=== PATIENT | female | born 1985 | race Caucasian/White ===

== ENCOUNTER → 2021-09-11 09:27 | Outpatient (BNVA) | payer OTHER, SELFPAY | PROVIDERS: Referring Provider Obstetrics & Gynecology; Visit Provider Obstetrics & Gynecology | DX: O09.893 Supervision of other high risk pregnancies, third trimester (principal); O34.211 Maternal care for low transverse scar from previous cesarean delivery; N85.8 Other specified noninflammatory disorders of uterus; Z3A.35 35 weeks gestation of pregnancy | CPT/HCPCS: 81000; 87086 ==

== ENCOUNTER 2021-09-26 17:45 | Inpatient (IN) | payer OTHER, SELFPAY ==
[2021-09-26] VITALS (20 sets, daily range): BP systolic 103–144; BP diastolic 60–87; PULSE 64–114; TEMP 36.4–36.9; O2SAT 94–98; BMI 38.9
--- NOTE | 2021-09-26 17:30 | ANES.PREANE2 ---
Pre-Anesthetic Assessment Height/Weight: Height 1.57 m Pulse BP 105 H 133/74 09/26/21 17:21 09/26/21 17:21 Preop Diagnosis: Planning of labor analgesia Labor w/ hx of prior c section Familial anesthetic complications: None Was Beta Jazlyn taken within 24 hours: N/A Was Clonidine taken within 24 hours: N/A Last intake: Full stomach Social No alcohol and No tobacco Exam alert, oriented x 3, clear to auscultation bilaterally and regular rate & rhythm Airway Submandibular: within normal limits Cervical ROM: within normal limits Mallampati: Class II Dentition: full History/ROS No significant history except as noted and No significant complaints Pulmonary None reported CV/HEM None reported None reported Hepatic None reported GI None reported Metabolic None reported Musc/skel None reported Neuropsych None reported Anesthetic Plan ASA status: 2 Anesthesia: Anesthesia Evaluation, Eval. for regional block, General and Regional (specify below) (Spinal) Other: We discussed risk and benefits of spinal anesthesia including infection, paralysis/catastrophic nerve injury, back bruising/pain, PDPH, conversion to general in case of spinal failure, intraoperative and PONV, life threatening allergic reaction, post operative ICU admission requiring prolonged intubation, stroke, heart attack. Risk of > 500 ml blood loss (7ml/kg in children): No Medications/Allergies Home Medications Medication Instructions Recorded Confirmed Last Taken Type docosahexaenoic acid 200 mg mg PO 09/11/21 09/18/21 Unknown History capsule ( DHA) Allergies Allergy/AdvReac Type Severity Reaction Status Date / Time No Known Allergies Allergy Verified 09/18/21 10:51 [facility] Anesthesia Surgical History History of bunionectomy History of Family History Denies family history of Diabetes CAD (coronary artery disease) Clotting disorder Hyperlipidemia Chronic kidney disease (CKD) Bleeding disorder Cancer Hypertension Thyroid disease Stroke Data Anesthesia Cardiac Studies: No Data to Display
--- NOTE | 2021-09-26 17:45 | PM.OPHPUD ---
Labor & Delivery H&P Update Date of Procedure: September 26, 2021 Date H&P Performed: 09/18/21 H&P update information: I have reviewed H&P completed within last 30 days, I have examined patient prior to procedure and Changes to prior documentation as noted here Changes to previous documentation: The patient has had SROM. She is now dilated to 5 cm and is requesting a repeat with tubal ligation. Admission Diagnosis: at 39 weeks, 1 day Preop diagnosis: Planning of labor analgesia Planned procedure: repeat with tubal ligation Related Problem List Diagnoses (1) Supervision of other high risk pregnancies, third trimester: (2) Previous delivery affecting : (3) Sterilization:
[2021-09-26 17:46] LABS: Basophils % 0.4 %; Eosinophils % 0.5 %; Hematocrit 36.9 % (37.0-47.0); Hemoglobin 12.2 g/dL (11.5-15.3); Lymphocytes # 0.7 10^3/uL (0.8-4.8); Lymphocytes % 8.8 %; Mean Corpuscular HGB Conc 33.1 g/dL (30.0-36.0); Mean Corpuscular Hemoglobin 28.8 pg (28.0-34.0); Mean Corpuscular Volume 87.2 fl (81-99); Mean Platelet Volume 10.6 fL (7.4-10.4); Monocytes # 0.8 10^3/uL (0.2-0.9); Monocytes % 9.6 %; Neutrophils # 6.67 10^3/uL (1.8-7.7); Neutrophils % 80.3 %; Nucleated Red Blood Cells % 0 %; Platelet Count 162 10^3/cmm (130-400); Red Blood Count 4.23 10^6/uL (4.1-5.3); Red Cell Distribution Width 13.7 % (12.1-15.1); White Blood Count 8.3 10^3/uL (4.0-10.0)
[2021-09-26] MEDS: citric acid-sodium citrate 30 mL UDC PO (18:10)
[2021-09-26] MEDS: metoclopramide 5 mg/mL SDV 2 mL 10 MG IVP (18:10)
[2021-09-26] MEDS: famotidine 20 mg/2 mL INJ IVP (18:11)
--- NOTE | 2021-09-26 19:57 | PM.OP ---
Operative Report Date of procedure: September 26, 2021 Pre-op diagnosis: Preop Diagnosis: previous . Desires repeat with tubal ligation. Post-op diagnosis: same Post-op findings: term male in the cephalic presentation. Procedure done: repeat with bilateral salpingectomy Specimens removed/disposition: bilateral fallopian tubes to pathology Surgeon: Shruthi Nix Anesthesia: Other (spinal) Estimated blood loss (mL): 300 IV fluids (mL): 2,000 Urine output (mL): 50 Complications: none Condition: stable Disposition: floor Brief History: The patient presented with SROM at term. She had 5 cm cervical dilation. She had previously wanted a TOLAC, but decided tonight that she would rather have a repeat with tubal ligation. Procedure: The patient was taken to the operating room where spinal anesthesia was administered and found to be adequate. She was prepped and draped in the normal sterile fashion in the dorsal supine position with a leftward tilt. A Pfannenstiel skin incision was made and carried down to the underlying layer of fascia. The fascia was nicked in the midline and extended laterally with the Fletcher scissors. The fascia was then tented up and the rectus muscles dissected off sharply. The rectus muscles were and the peritoneum entered bluntly with the digit. The peritoneal incision was extended superiorly and inferiorly with good visualization of the bladder. The Nixon O retractor was placed. It was clear of any bowel or omentum. The bladder flap was created sharply with the Metzenbaum scissors. A low transverse uterine incision was made and carried down to the bag of water. The bag of water was ruptured and the uterine incision extended cephalocaudad. The scalp was grasped and brought through the incision. The nose and mouth were bulb suctioned. The shoulders and body delivered atraumatically. The baby was allowed to rest, while being dried, for 1 minute and then the cord was clamped and cut. The baby was handed to the waiting real estate loan officer. The placenta was delivered by expression. The uterus was exteriorized and cleared of all clots and debris. The uterine incision was closed with 0 Vicryl in a running fashion. A second imbricating layer of 3-0 Monocryl was used to close the uterus. The bladder flap was closed with 3-0 Monocryl. There was excellent hemostasis. Attention was then turned to the tubal ligation portion of the procedure. The fallopian tube was elevated with the armando clamp. The cautery device was used to divide and cauterize the mesosalpinx between the tube and ovary, until the entire tube was removed. This was performed the same way on both sides. The Nixon O retractor was removed. The uterus was returned to the abdomen. The peritoneum was closed with 3-0 Monocryl, incorporating the rectus muscle. The fascia was closed with 0 Vicryl in 2 separate sutures overlapping in the midline. The skin was closed with absorbable ken. Apgars on baby 8 at 1 minute and 9 at 5 minutes. weight 8 pounds. Mother and baby were stable post delivery.
[2021-09-26] MEDS: guaiFENesin-dextromethorphan UDC 10 mL PO (21:43)
[2021-09-26] MEDS: saline nasal spray 44mL Btl 1 SPRAY NASAL (22:37)
[2021-09-27] VITALS (13 sets, daily range): BP systolic 110–135; BP diastolic 65–79; PULSE 78–112; RESP 16–17; TEMP 36.4–36.9; O2SAT 96–97
[2021-09-27] MEDS: saline nasal spray 44mL Btl 1 SPRAY NASAL ×2 (01:34→21:19)
[2021-09-27] MEDS: ketorolac 30 mg/mL INJ IVP (03:05)
[2021-09-27] MEDS: guaiFENesin-dextromethorphan UDC 10 mL PO ×4 (03:29→21:38)
[2021-09-27] MEDS: lanolin oint 7 gm 1 APPLIC TOPICAL (03:30)
[2021-09-27] MEDS: prenatal vitamin Capsule 1 CAP PO (09:11)
[2021-09-27] MEDS: docusate sodium 100 mg Capsule PO ×2 (09:11→17:47)
[2021-09-27] MEDS: oxyCODONE-APAP 5-325 mg Tablet PO ×3 (09:13→20:16)
--- NOTE | 2021-09-27 09:52 | ANE.PACU2 ---
Inpatient post-anesthesia follow up: Airway intact: Yes Vital signs: Temperature 97.9 F Pulse Rate 94 Respiratory Rate 17 Blood Pressure 112/67 Pulse Oximetry 96 Oxygen Delivery Me thod Room Air Oxygen Flow Rate Fraction of Inspir ed Oxygen Hydration adequate: Yes Nausea and vomiting: No Pain level: 2 Mental status: Baseline
--- NOTE | 2021-09-27 10:15 | PM.PN ---
Subjective Subjective: The patient is doing well this morning. Vitals/I&O/Wt Last Vital Signs Temp 97.9 F 09/27/21 04:35 Pulse 94 09/27/21 04:35 Resp 17 09/27/21 09:13 BP 112/67 09/27/21 04:35 Pulse Ox 96 09/27/21 04:35 09/26/21 09/27/21 09/27/21 22:59 06:59 14:59 Intake Total 1999 Output Total 425 / 425 Balance 1575 / 1575 Weight last 48 hrs Weight 213 lb Physical Exam Const: COMMON NORMALS: no acute distress, average body habitus, patient oriented x3, no limitations, healthy appearing, alert and well nourished GENERAL APPEARANCE: cooperative, comfortable, well kempt and well developed ORIENTATION/CONSCIOUSNESS: Yes awake, Yes oriented to person, Yes oriented to place and Yes oriented to time Resp: COMMON NORMALS: normal respiratory effort EFFORT & INSPECTION: Yes able to speak in complete sentences GI: COMMON NORMALS: Soft to palpation and non-tender PALPATION: Yes Soft to palpation Extremity: COMMON NORMALS: normal to inspection Neuro: COMMON NORMALS: patient oriented x3 SENSORIUM/ORIENTATION: Yes alert, Yes oriented to person, Yes oriented to place and Yes oriented to time Psych: APPEARANCE: Yes well kempt Skin: WOUNDS: Yes surgical site (clean, dry and covered) Urinary Catheter Management: Wong: Cath Placed During This Visit: yes Reason for Continuing Indwelling Catheter: Required Immobilization for Trauma or Surgery or Anesthesia Urinary Catheter Date of Insertion: 09/26/21 Urinary Catheter Time of Insertion: 18:40 Data : 09/26/21 17:15 Attestations Medical Necessity Statement*: She had a repeat . She will be here for 2 midnights. Coding Level of Care Code Acute Development Advisor for Shar Avila
[2021-09-27] MEDS: loratadine 10 mg Tablet PO (11:34)
[2021-09-27 11:54] LABS: Hematocrit 33.6 % (37.0-47.0); Mean Corpuscular HGB Conc 32.7 g/dL (30.0-36.0); Mean Corpuscular Volume 88.7 fl (81-99); Mean Platelet Volume 10.5 fL (7.4-10.4); Platelet Count 138 10^3/cmm (130-400); Red Blood Count 3.79 10^6/uL (4.1-5.3); Red Cell Distribution Width 13.8 % (12.1-15.1); White Blood Count 7.9 10^3/uL (4.0-10.0)
[2021-09-27] MEDS: simethicone 80 mg Chew PO ×2 (15:46→21:19)
[2021-09-28] VITALS (7 sets, daily range): BP systolic 120–125; BP diastolic 71–83; PULSE 70–76; RESP 16–17; TEMP 36.3–36.7; O2SAT 96
[2021-09-28] MEDS: oxyCODONE-APAP 5-325 mg Tablet PO ×3 (00:26→08:56)
[2021-09-28] MEDS: guaiFENesin-dextromethorphan UDC 10 mL PO ×2 (02:48→09:12)
--- NOTE | 2021-09-28 07:44 | ANE.PACU2 ---
Inpatient post-anesthesia follow up: Airway intact: Yes Vital signs: Temperature 97.4 F Pulse Rate 76 Respiratory Rate 16 Blood Pressure 122/83 Pulse Oximetry 96 Oxygen Delivery Me thod Room Air Oxygen Flow Rate Fraction of Inspir ed Oxygen Hydration adequate: Yes Nausea and vomiting: No Pain level: 7 (Receiving multi modal therapy) Mental status: Baseline
[2021-09-28] MEDS: ibuprofen 800 mg tablet PO (08:56)
[2021-09-28] MEDS: prenatal vitamin Capsule 1 CAP PO (08:56)
[2021-09-28] MEDS: docusate sodium 100 mg Capsule PO (08:56)
[2021-09-28] MEDS: loratadine 10 mg Tablet PO (09:12)
[2021-09-28] MEDS: simethicone 80 mg Chew PO (09:12)
--- NOTE | 2021-09-29 14:55 | P.DS_ITS ---
Discharge Providers Date of Admission: 09/26/21 17:45 Date of Discharge: September 29, 2021 Attending Provider at Admission: Shruthi Nix MD Attending Provider at Discharge: Eladio Fiore MD Diagnoses at Discharge Discharge Diagnosis (1) Supervision of other high risk pregnancies, third trimester: Status: Acute (2) Previous delivery affecting : Status: Acute (3) Sterilization: Status: Acute Reason for Visit Reason for Visit: vaginal bleeding Hospital Course Hospital Course The patient was admitted for SROM. She had a previous and desired a repeat with tubal ligation. She did well postoperatively and was ready for discharge on day #2 Physical Exam Narrative: doing wel. No concerns today Const: COMMON NORMALS: no acute distress, patient oriented x3, no limitations, healthy appearing, alert and well nourished GENERAL APPEARANCE: cooperative, comfortable, well kempt and well developed ORIENTATION/CONSCIOUSNESS: Yes awake, Yes oriented to person, Yes oriented to place and Yes oriented to time Resp: COMMON NORMALS: normal respiratory effort EFFORT & INSPECTION: Yes able to speak in complete sentences GI: COMMON NORMALS: Soft to palpation and non-tender PALPATION: Yes Soft to palpation Extremity: COMMON NORMALS: no calf tenderness Neuro: COMMON NORMALS: patient oriented x3 SENSORIUM/ORIENTATION: Yes alert, Yes oriented to person, Yes oriented to place and Yes oriented to time Psych: APPEARANCE: Yes well kempt Urinary Catheter Management: Wong: Cath Placed During This Visit: yes, but has since been removed by the nurse Reason for Continuing Indwelling Catheter: Required Immobilization for Trauma or Surgery or Anesthesia Urinary Catheter Date of Insertion: 09/26/21 Urinary Catheter Time of Insertion: 18:40 Date Urinary Catheter Removed: 09/27/21 Time Urinary Catheter Discontinued: 09:00 Discharge Data Studies Completed and Pending Completed Studies During Hospitalization Category Date Time Status Pathology: Surgical [PTH] Routine Pth 09/27/21 11:24 Completed Laboratory Results WBC 7.9 10^3/uL (4.0-10.0) 09/27/21 11:40 RBC 3.79 10^6/uL (4.1-5.3) L 09/27/21 11:40 Hgb 11.0 g/dL (11.5-15.3) L 09/27/21 11:40 Hct 33.6 % (37.0-47.0) L 09/27/21 11:40 MCV 88.7 fl (81-99) 09/27/21 11:40 MCH 29.0 pg (28.0-34.0) 09/27/21 11:40 MCHC 32.7 g/dL (30.0-36.0) 09/27/21 11:40 RDW 13.8 % (12.1-15.1) 09/27/21 11:40 Plt Count 138 10^3/cmm (130-400) 09/27/21 11:40 MPV 10.5 fL (7.4-10.4) H 09/27/21 11:40 Neut % (Auto) 80.3 % 09/26/21 17:15 Lymph % (Auto) 8.8 % 09/26/21 17:15 Stan[place]aus % (Auto) 9.6 % 09/26/21 17:15 Eos % (Auto) 0.5 % 09/26/21 17:15 Baso % (Auto) 0.4 % 09/26/21 17:15 Neut # (Auto) 6.67 10^3/uL (1.8-7.7) 09/26/21 17:15 Lymph # (Auto) 0.7 10^3/uL (0.8-4.8) L 09/26/21 17:15 Stan[place]aus # (Auto) 0.8 10^3/uL (0.2-0.9) 09/26/21 17:15 Eos # (Auto) 0.0 10^3/uL (0.0-0.8) 09/26/21 17:15 Baso # (Auto) 0.0 10^3/uL (0.0-0.1) 09/26/21 17:15 Nucleated RBC % (auto) 0 % 09/26/21 17:15 Nucleated RBCs # 0.0 /100WBC 09/26/21 17:15 Vitals Last Vital Signs Temp 98.1 F 09/28/21 11:00 Pulse 70 09/28/21 11:00 Resp 17 09/28/21 11:00 BP 120/71 09/28/21 11:00 Pulse Ox 96 09/28/21 04:20 Discharge Plan Discharge Patient Disposition: Home Condition: Stable Prescriptions: New ibuprofen 800 mg Tablet 800 mg PO TID Qty: 40 0RF oxycodone-acetaminophen 5-325 mg Tablet 1 tab PO Q4H PRN (Reason: Moderate To Severe Pain) Qty: 30 0RF docusate sodium 100 mg Capsule 100 mg PO BID Qty: 60 0RF Continued DHA 200 mg capsule PO 0RF No Action [id number] 30-10-200 mg/5 mL liquid 10 ml PO Q6H PRN (Reason: cough) Qty: 473 0RF Discharge Orders: Discharge Order (Routine); Ordered 09/28/21 Ordered By: Shruthi Nix Referrals: Shruthi Nix MD [Physician] - 10/05/21 11:00 am Patient Instructions: Depression (DC), Bleeding (DC), Preeclampsia and Eclampsia After Delivery (GEN), OB WHC, OB Discharge Report, OB Food/Drug Interaction Guide, OB Care at Home, Opioid Safety, OB Home Care, OB Proud Parent Packet, Abnormal Bleeding Discharge Attestations Time Spent in Discharge Care*: less than 30 min Quality Metrics Clinical Quality Measures [ No reported AMI, CVA or VTE this stay] Coding Level of Care Code Acute Chg FW DC note Diagnoses Supervision of other high risk pregnancies, third trimester O09.893 Previous delivery affecting O34.219 Sterilization Z30.2
== END 2021-09-28 11:05 | disposition home or self-care (01) | DRG 785 ==
LOC: OPOB 09-27 11:46 → OBGYN 09-27 11:46
PROVIDERS: Admitting Provider Obstetrics & Gynecology; Visit Provider Obstetrics & Gynecology
PROC: 10D00Z1 Extraction of Products of Conception, Low, Open Approach (ICD-10-PCS; CPT 59514; principal; 2021-09-26 18:35)
DX: O34.219 Maternal care for unspecified type scar from previous cesarean delivery (principal); Z3A.39 39 weeks gestation of pregnancy; Z37.0 Single live birth; Z30.2 Encounter for sterilization
CPT/HCPCS: 36415; 51702; 59409; 83986; 85025; 85027; 88302; 96374; 96375; 99211; J0690; J1885; J2274; J2405; J2765; J3490

== ENCOUNTER → 2022-03-14 14:15 | Outpatient (BNVA) | payer OTHER, SELFPAY | PROVIDERS: Visit Provider Obstetrics & Gynecology | DX: L91.8 Other hypertrophic disorders of the skin (principal) | CPT/HCPCS: 88304 ==

== ENCOUNTER → 2023-04-30 10:49 | Outpatient (BNVA) | payer OTHER, SELFPAY | PROVIDERS: PCP Registered Nurse; Visit Provider Registered Nurse | DX: R03.0 Elevated blood-pressure reading, without diagnosis of hypertension (principal); Z13.6 Encounter for screening for cardiovascular disorders | CPT/HCPCS: 80053; 82607; 83036; 84443; 85025 ==

== ENCOUNTER 2023-05-13 14:13 | Outpatient (CLI) | payer OTHER, SELFPAY ==
--- NOTE | 2023-05-13 14:30 | USCV_ITS ---
Brooke Duong Age: 37 Gender: F : 1985 Exam Date: 05/13/2023 14:32 Ordering Phys: Lokesh Arias LABEL DESIGNER LABEL DESIGNER Technologist: CT Exam Location: [facility] – [place] Indication: cp BP: 148 / 95 HR: 79 Rhythm: Sinus Technical Quality: Adequate MEASUREMENTS (Male / Female) Normal Values 2D ECHO LV Chamber Size 4.0 cm RV Chamber Size 3.7 cm LVOT Diameter 2.1 cm LV Ejection Fraction MOD 2C 66.2 % LV Ejection Fraction 2C AL 65.5 % LA Diameter 3.4 cm LA Width 3.0 cm LA Height 4.2 cm RA Width 3.9 cm RA Height 4.4 cm Aorta at Sinotubular Diameter 1.9 cm IVC Diameter 1.6 cm M-MODE Aortic Annulus Diameter 2.7 cm LA Ao Ratio MM 1.5 MV E Point Septal Separation 0.8 cm DOPPLER AV Peak Velocity 219.0 cm/s LVOT Peak Velocity 159.0 cm/s AV Area Cont Eq vti 2.7 cm squared AV Area Cont Eq pk 2.4 cm squared MV E' Velocity 14.0 cm/s TR Peak Velocity 105.0 cm/s TR Peak Gradient 4.4 mmHg TV Peak E Velocity 77.0 cm/s Right Atrial Pressure 3.0 mmHg Pulmonary Artery Systolic Pressu 7.4 mmHg PV Peak Velocity 152.0 cm/s FINDINGS Left Ventricle Normal left ventricular size and systolic function, EF 67 %. No regional wall motion abnormalities. Right Ventricle The right ventricle is normal in size and function. Right Atrium The right atrium is normal in size. Left Atrium The left atrium is normal in size. Mitral Valve Trace mitral valve regurgitation. Aortic Valve Elevated velocity at the aortic valve Tricuspid Valve Trace tricuspid valve regurgitation. Pulmonic Valve No gross abnormalities noted Pericardium Normal pericardium without effusion. Aorta Normal ascending aorta dimension. IVC The inferior vena cava appears normal. CONCLUSIONS Normal left ventricular size and systolic function, EF 67 %. No regional wall motion abnormalities. Elevated velocity at the aortic valve, possibly due to functional stenosis. Bicuspid aortic valve cannot be excluded. Trace tricuspid valve regurgitation. Estimated pulmonary artery peak systolic pressure, within normal limits There is no pericardial effusion. There are no intracardiac masses. No similar previous studies are available for comparison Dr Anthony Escalante MD [facility] (Electronically Signed) Final Date: 20 May 2023 08:31 S
== END 2023-05-13 14:14 | disposition home or self-care (01) ==
LOC: RAD 14:13
PROVIDERS: PCP Registered Nurse; Visit Provider Registered Nurse
DX: R01.1 Cardiac murmur, unspecified (principal); I10 Essential (primary) hypertension; R07.9 Chest pain, unspecified
CPT/HCPCS: 93306